=== PATIENT | male | born 1955 | race Two or more races ===

== ENCOUNTER 2017-02-04 11:30 | Emergency (ER) | payer SELFPAY ==
[~2017-02-04] VITALS: Ht 177.8 cm; Wt 71.2 kg
--- NOTE | 2017-02-04 11:32 | NUR ---
PT BIBRA FROM HOME TO ER BED 12. SISTER CALLED 911 CONCERNED ABOUT PT ACTING BIZZARE AND RESTLESS. POSSIBLE HEROIN USE. PT DENIES STATING LAST HEROIN USE WAS LAST WEEK. PLACED ON MONITOR. TACHY OTHERWISE STABLE. PT VERBALLY RESPONSIVE. AWAITING MD MITCHELL.
[2017-02-04] MEDS ORDERED: LORAZEPAM INJ 2 MG/ML VIAL ONE (12:14)
--- NOTE | 2017-02-04 12:19 | NUR ---
ATIVAN 1MG GIVEN IM PER ERMD VERBAL ORDER.
[2017-02-04] MEDS ORDERED: LORAZEPAM INJ 2 MG/ML VIAL IM ONE (12:30)
[2017-02-04 12:36] LABS: HEMATOCRIT 25 % (39-51); HEMOGLOBIN 7.7 g/dL (13.5-17.5); MEAN CORPUSCULAR HEMOGLOBIN 17 PG (26.0-33.0); MEAN CORPUSCULAR HGB CONC 31 g/dl (31.0-36.0); MEAN CORPUSCULAR VOLUME 56 fL (80-96); PLATELET COUNT (AUTO) 273 /CMM (150-450); RDW COEFFICIENT OF VARIATION 21.8 (11.5-15.0); RED BLOOD CELL COUNT(AUTO) 4.47 MIL/uL (4.5-6.0); WHITE BLOOD COUNT (AUTO) 6.2 K/uL (4.3-11.0)
[2017-02-04 12:43] LABS: CALCIUM, SERUM 8.3 mg/dL (8.5-10.1); CREATININE 1.2 mg/dL (0.6-1.3); POTASSIUM 4.4 mmol/L (3.5-5.1)
[2017-02-04 12:48] LABS: ALBUMIN 2.9 g/dL (3.4-5.0); BILIRUBIN,DIRECT 0.2 mg/dL (0.0-0.2); BILIRUBIN,TOTAL 0.4 mg/dL (0.2-1.0); TOTAL PROTEIN, SERUM 7.3 g/dL (6.4-8.2)
[2017-02-04 12:50] LABS: EOSINOPHILS # (AUTO) 0.2 /CMM (0.0-0.7); EOSINOPHILS % (AUTO) 3.5 % (0.0-6.0); LYMPHOCYTES # (AUTO) 1.1 /CMM (0.8-4.8); LYMPHOCYTES % (AUTO) 17.5 % (20.0-44.0); MONOCYTES # (AUTO) 0.6 /CMM (0.1-1.30); MONOCYTES % (AUTO) 9.7 % (2.0-12.0); NEUTROPHILS # (AUTO) 4.4 /CMM (1.8-8.9); NEUTROPHILS % (AUTO) 69.3 % (43.0-81.0)
--- NOTE | 2017-02-04 12:59 | NUR ---
PT AMBULATED TO THE BATHROOM TRYING TO PROVIDE URINE SAMPLE. STATES UNABLE TO GO. DR BRADEN MADE AWARE.
[2017-02-04] MEDS ORDERED: LORAZEPAM 1 MG TABLET ONE (13:07)
--- NOTE | 2017-02-04 13:16 | NUR ---
PT TO RADIOLOGY FOR HEAD CT SCAN VIA [facility].
[2017-02-04] MEDS ORDERED: LORAZEPAM 1 MG TABLET PO ONE (13:30)
[2017-02-04 14:22] LABS: APPEARANCE,URINE Clear (CLEAR); BILIRUBIN,URINE SMALL (NEGATIVE); BLOOD, URINE Negative Ery/uL (NEGATIVE); COLOR,URINE Yellow (YELLOW); KETONES,URINE Trace (NEGATIVE); LEUKOCYTE ESTERASE ,URINE Negative (NEGATIVE); NITRITE, URINE Negative (NEGATIVE); PH,URINE 5.5 (5.0-8.0); PROTEIN,URINE Negative (NEGATIVE); UGLUCOSE Negative (NEGATIVE); UROBILINOGEN,URINE 0.2 EU/dL (0.2)
[2017-02-04 14:24] LABS: BACTERIA,URINE Rare /HPF (None Seen); RBC,URINE NONE SEEN /HPF (0-2); SQUAMOUS EPITHELIAL CELL,UR Few /HPF (None Seen); WBC,URINE 0-2 /HPF (0-3)
[2017-02-04] MEDS ORDERED: OLANZAPINE 10 MG VIAL IM ONE ×2 (14:27→14:30)
--- NOTE | 2017-02-04 14:30 | NUR ---
DR PITTMAN IN TO SEE PT. PT IS ACTING BIZZARE. VERBALLY NON RESPONSIVE, AGITATED. ON MONITOR. MEDICATED ORDERED.
[2017-02-04 14:54] LABS: LYMPHOCYTES % (MANUAL) 21 % (16-48); MONOCYTES % (MANUAL) 10 % (0-11.0); NEUTROPHILS % (MANUAL) 69 (42-76)
--- NOTE | 2017-02-04 15:00 | NUR ---
PT GIRLFRIEND AT BEDSIDE. STATES HE SAW PT SHOOTING HEROIN THIS MORNING. PT IS SEDATED AT THIS TIME. ON MONITOR. STABLE VITALS. WILL CONTINUE TO MONITOR.
--- NOTE | 2017-02-04 16:18 | NUR ---
PERSON TO NOTIFY KITTY
--- NOTE | 2017-02-04 17:47 | NUR ---
PT SLEEPING. ON MONITOR. STABLE VITALS. WILL CONT TO MONITOR.
--- NOTE | 2017-02-04 19:21 | NUR ---
PT TRANSFERED TO OBS ROOM. GURPREET BAIN AT BEDSIDE SITTER.
--- NOTE | 2017-02-04 23:49 | NUR ---
PT RELAXING IN BED IN NO APPARENT DISTRESS, [place] BAIN AT BEDSIDE A SITTER
--- NOTE | 2017-02-05 03:13 | NUR ---
PT SLEEPING IN NO APPARENT DISTRESS, PT ON MONITOR VSS, MATHEMATICAL STATISTICIAN AT BEDSIDE SITTER WILL CONTINUE TO MONITOR.
--- NOTE | 2017-02-05 06:02 | NUR ---
PT AWAKE AND A/OX4, BREATHING EFFORTLESSLY ON ROOM AIR, PT WAITING FOR RIDE TO PICK HIM UP DACIA CHAVIS AT BEDSIDE, WILL CONTINUE TO MONITOR.
--- NOTE | 2017-02-05 07:45 | NUR ---
Patient is resting comfortably in bed with eyes closed. Easily aroused. VSS
--- NOTE | 2017-02-05 08:05 | NUR ---
The patient was seen and assessed by the Dr. Griffith at bedside - denies SUICIDAL - he is alert and oriented x 4. Also, per PET TEAM notes, see below: Patient alert and orientated in all spheres. Denies S/i H/i and symptoms of psychosis. Euthymic. Judgment insight and impulse control wnl. STM and LTM are WNL. Appetite and sleep WNL except when using drugs. Patient does nto meet 5150 criteria nor inpatient criteria. Patient cleared for discharge. He will follow up with his Methadone clinic. I have referred him to [facility] [phone] even thought he denies use abuse fo drugs. I discussed the case with Dr Penn. Suicide Risk Screen Suicide Risk Screen Voicing suicidal intent/idea: No Positive hx of suicide attempt: No Pt has active suicide plan: No Hx psy cond acute symp 30d: No SHORTY BENAVIDES, LCSWDec 2016 04:49
--- NOTE | 2017-02-05 08:08 | NUR ---
Plan: DC home with family
--- NOTE | 2017-02-05 08:10 | NUR ---
IV removed. Catheter intact and site benign. Pressure and 4x4 applied to site. No bleeding noted.
--- NOTE | 2017-02-05 08:13 | NUR ---
Patient discharged to home in stable condition. Written and verbal after care instructions given. Patient verbalizes understanding of instruction.
[2017-02-05 08:15] VITALS: BP 125/85
== END 2017-02-05 08:16 | disposition home or self-care (01) ==
LOC: ER 11:32
DX: F19.10 Other psychoactive substance abuse, uncomplicated (principal); F11.10 Opioid abuse, uncomplicated; D64.9 Anemia, unspecified; J44.9 Chronic obstructive pulmonary disease, unspecified; F17.200 Nicotine dependence, unspecified, uncomplicated; Z86.19 Personal history of other infectious and parasitic diseases
CPT/HCPCS: 36415; 70450; 80048; 80076; 80305; 81001; 82140; 85025; 96372 ×2; 99285; A4606; G0480; J2060; J3490; Z7610; 81000-TC

== ENCOUNTER 2017-10-03 20:54 | Inpatient (IN) | payer MEDICAID ==
[~2017-10-03] VITALS: Ht 185.4 cm; Wt 66.7 kg
[2017-10-03] MEDS ORDERED: LORAZEPAM INJ 2 MG/ML VIAL IVP ONE (21:30)
[2017-10-03] MEDS ORDERED: LORAZEPAM INJ 2 MG/ML VIAL ONE ×2 (21:48→22:29)
[2017-10-03] MEDS ORDERED: diphenhydrAMINE HCL 50 MG/ML VIAL ONE (22:07)
[2017-10-03] MEDS ORDERED: HALOPERIDOL LACTATE INJ 5 MG/ML VIAL ONE (22:07)
[2017-10-03] MEDS ORDERED: IV NS 0.9% 1,000 ML BAG IV ONE ×2 (22:30→23:30)
[2017-10-03] MEDS ORDERED: LORAZEPAM INJ 2 MG/ML VIAL IV ONE (22:30)
[2017-10-03] MEDS ORDERED: diphenhydrAMINE HCL 50 MG/ML VIAL IV ONE (22:30)
[2017-10-03] MEDS ORDERED: HALOPERIDOL LACTATE INJ 5 MG/ML VIAL IM ONE (22:30)
[2017-10-03 22:50] LABS: HEMATOCRIT 31 % (39-51); HEMOGLOBIN 8.9 g/dL (13.5-17.5); MEAN CORPUSCULAR HEMOGLOBIN 18 PG (26.0-33.0); MEAN CORPUSCULAR HGB CONC 29 g/dl (31.0-36.0); MEAN CORPUSCULAR VOLUME 61 fL (80-96); PLATELET COUNT (AUTO) 200 /CMM (150-450); RDW COEFFICIENT OF VARIATION 23.2 (11.5-15.0); RED BLOOD CELL COUNT(AUTO) 5.06 MIL/uL (4.5-6.0); WHITE BLOOD COUNT (AUTO) 9.2 K/uL (4.3-11.0)
[2017-10-03 23:01] LABS: CALCIUM, SERUM 8.1 mg/dL (8.5-10.1); CARBON DIOXIDE 24 mmol/L (21-32); CHLORIDE 107 mmol/L (98-107); GLUCOSE 88 mg/dL (74-106); POTASSIUM 3.2 mmol/L (3.5-5.1); SODIUM SERUM 141 mmol/L (136-145); UREA NITROGEN, BLOOD 15 mg/dL (7-18)
[2017-10-03 23:03] LABS: ALANINE AMINOTRANSFERASE 42 U/L (12-78); ALBUMIN 3.3 g/dL (3.4-5.0); ALCOHOL, BLOOD < 3 mg/dL (0-0); ALKALINE PHOSPHATASE 114 U/L (46-116); ASPARTATE AMINOTRANSFERASE 80 U/L (15-37); BILIRUBIN,DIRECT 0.2 mg/dL (0.0-0.2); BILIRUBIN,TOTAL 0.6 mg/dL (0.2-1.0); SALICYLATE 4.6 mg/dL (2.8-20.0); TOTAL PROTEIN, SERUM 7.4 g/dL (6.4-8.2)
[2017-10-03 23:04] LABS: ACETAMINOPHEN 0 ug/ml (10-30)
[2017-10-03 23:10] LABS: ABG BASE EXCESS -5.2 mmol/L; ABG OXYGEN SATURATION 90.1 % (92.0-98.5); ABG PCO2 38.4 mmHg (35.0-45.0); ABG PH 7.338 (7.350-7.450); ABG PO2 65.7 mmHg (75.0-100.0); AaDO2 117.5 mmHg; COHb 2.5 % (0.5-1.5); MetHb 0.5 % (0.0-1.5); O2Hb 87.4 % (94.0-97.0); SITE, ABG Left Radial
[2017-10-03] MEDS ORDERED: PROPOFOL 100 ML ONE (23:14)
[2017-10-03 23:18] LABS: EOSINOPHILS % (MANUAL) 1 % (0-4); LYMPHOCYTES % (MANUAL) 26 % (16-48); MONOCYTES % (MANUAL) 10 % (0-11.0); NEUTROPHILS % (MANUAL) 63 (42-76)
[2017-10-03] MEDS ORDERED: ETOMIDATE 2 MG/ML VIAL IV ONE (23:30)
[2017-10-03] MEDS ORDERED: ROCURONIUM BROMIDE 100 MG/10 ML VIAL IV ONE (23:30)
[2017-10-03] MEDS ORDERED: PROPOFOL 100 ML IV PRN (23:30)
[2017-10-03 23:41] VITALS: BP 182/91
[2017-10-04] VITALS (53 sets, daily range): BP systolic 83–143; BP diastolic 51–76
[2017-10-04] MEDS ORDERED: LIDOCAINE 2% JEL UROJET 10 ML MM ONE
[2017-10-04 00:01] LABS: APPEARANCE,URINE CLEAR (CLEAR); BILIRUBIN,URINE NEGATIVE (NEGATIVE); BLOOD, URINE TRACE-INTA Ery/uL (NEGATIVE); COLOR,URINE YELLOW (YELLOW); KETONES,URINE NEGATIVE (NEGATIVE); LEUKOCYTE ESTERASE ,URINE NEGATIVE (NEGATIVE); NITRITE, URINE NEGATIVE (NEGATIVE); PROTEIN,URINE NEGATIVE (NEGATIVE); UGLUCOSE NEGATIVE (NEGATIVE); UROBILINOGEN,URINE 0.2 EU/dL (0.2)
[2017-10-04 00:07] LABS: BACTERIA,URINE Few /HPF (None Seen); SQUAMOUS EPITHELIAL CELL,UR Rare /HPF (None Seen); WBC,URINE 0-2 /HPF (0-3)
[2017-10-04 00:36] LABS: CREATINE KINASE MB 4.5 ng/mL (0-3.6)
[2017-10-04 01:05] LABS: ABG BASE EXCESS -4.4 mmol/L; ABG OXYGEN SATURATION 95.2 % (92.0-98.5); ABG PH 7.187 (7.350-7.450); ABG PO2 101.1 mmHg (75.0-100.0); AaDO2 182.3 mmHg; MetHb 0.5 % (0.0-1.5); O2Hb 92.8 % (94.0-97.0); SITE, ABG Right Radial; VENT MODE, BG AC 16 500 50% +5
[2017-10-04 01:38] LABS: ABG BASE EXCESS -1.9 mmol/L; ABG OXYGEN SATURATION 97.9 % (92.0-98.5); ABG PO2 145.3 mmHg (75.0-100.0); AaDO2 157.2 mmHg; COHb 1.6 % (0.5-1.5); MetHb 0.3 % (0.0-1.5); SITE, ABG Right Radial; VENT MODE, BG AC 20 500 50% +5
[2017-10-04] MEDS ORDERED: PROPOFOL 100 ML ONE (02:04)
[2017-10-04] MEDS ORDERED: IV D5/0.45 NACL 1,000 ML IV PRN (03:16)
[2017-10-04] MEDS ORDERED: ACETAMINOPHEN 325 MG TABLET PO PRN (03:30)
[2017-10-04] MEDS ORDERED: ONDANSETRON HCL/PF 4 MG/2 ML VIAL IVP PRN (03:30)
[2017-10-04] MEDS ORDERED: Thiamine 100 MG/ML VIAL ONE (04:03)
[2017-10-04] MEDS: ENOXAPARIN SODIUM 40 MG/0.4 ML DISP.SYRIN SQ SCH (04:05)
[2017-10-04] MEDS: Thiamine 100 MG in IV D5W 50 ML IV SCH (04:06)
[2017-10-04] MEDS ORDERED: IV PREMIX D5 1/2NS + KCL 1,000 ML IV ONE (04:15)
[2017-10-04] MEDS ORDERED: Potassium Chloride 20 MEQ in IV D5/0.45 NACL 1,000 ML IV SCH (04:30)
[2017-10-04] MEDS: PROPOFOL 100 ML IV PRN ×8 (04:33→23:28)
[2017-10-04 05:05] LABS: HEMATOCRIT 29 % (39-51); HEMOGLOBIN 8.1 g/dL (13.5-17.5); MEAN CORPUSCULAR HEMOGLOBIN 17 PG (26.0-33.0); MEAN CORPUSCULAR HGB CONC 28 g/dl (31.0-36.0); MEAN CORPUSCULAR VOLUME 61 fL (80-96); PLATELET COUNT (AUTO) 163 /CMM (150-450); RDW COEFFICIENT OF VARIATION 22.6 (11.5-15.0); RED BLOOD CELL COUNT(AUTO) 4.69 MIL/uL (4.5-6.0); WHITE BLOOD COUNT (AUTO) 8.9 K/uL (4.3-11.0)
[2017-10-04 05:10] LABS: ALBUMIN 2.8 g/dL (3.4-5.0); CALCIUM, SERUM 7.5 mg/dL (8.5-10.1); CREATININE 0.8 mg/dL (0.6-1.3); MAGNESIUM 1.8 mg/dL (1.8-2.4); POTASSIUM 3.8 mmol/L (3.5-5.1)
[2017-10-04 05:25] LABS: BILIRUBIN,TOTAL 0.5 mg/dL (0.2-1.0); PHOSPHORUS 2.9 mg/dL (2.5-4.9); THYROID STIMULATING HORMONE 1.205 uIU/mL (0.358-3.74); TOTAL PROTEIN, SERUM 6.5 g/dL (6.4-8.2)
[2017-10-04 05:31] LABS: TROPONIN I 0.066 ng/mL (0.00-0.056)
[2017-10-04 05:36] LABS: LYMPHOCYTES % (MANUAL) 6 % (16-48); MONOCYTES % (MANUAL) 3 % (0-11.0); NEUTROPHILS % (MANUAL) 91 (42-76)
[2017-10-04] MEDS ORDERED: ROCURONIUM BROMIDE 50 MG/5 ML IV ONE (08:00)
[2017-10-04] MEDS ORDERED: ETOMIDATE 2 MG/ML VIAL IV ONE (08:00)
[2017-10-04] MEDS: Potassium Chloride 20 MEQ in IV D5/ 0.9% NACL 1,000 ML IV PRN ×2 (08:37→19:25)
[2017-10-04 10:37] LABS: ABG BASE EXCESS -1.7 mmol/L; ABG OXYGEN SATURATION 97.7 % (92.0-98.5); ABG PCO2 38.8 mmHg (35.0-45.0); ABG PH 7.392 (7.350-7.450); ABG PO2 132.1 mmHg (75.0-100.0); AaDO2 180.8 mmHg; COHb 0.5 % (0.5-1.5); MetHb 0.4 % (0.0-1.5); O2Hb 96.8 % (94.0-97.0); SITE, ABG Right Radial; VENT MODE, BG AC 20 500 50% +5
[2017-10-04] MEDS: Z GUARD REMEDY 2 OZ OINT TP PRN ×2 (11:29→18:25)
[2017-10-04] MEDS ORDERED: IV NS 0.9% 500 ML IV ONE (11:30)
[2017-10-04] MEDS: FENTANYL CITRAT IV 2,500 MCG in IV NS 0.9% 200 ML IV PRN (15:46)
[2017-10-04 18:35] LABS: OCCULT BLOOD STOOL NEGATIVE (NEGATIVE)
[2017-10-05] VITALS (55 sets, daily range): BP systolic 97–153; BP diastolic 55–90
[2017-10-05] MEDS: PROPOFOL 100 ML IV PRN ×4 (01:09→07:23)
[2017-10-05] MEDS: Potassium Chloride 20 MEQ in IV D5/ 0.9% NACL 1,000 ML IV PRN ×2 (03:16→15:21)
[2017-10-05] MEDS: Thiamine 100 MG in IV D5W 50 ML IV SCH (03:44)
[2017-10-05] MEDS: ENOXAPARIN SODIUM 40 MG/0.4 ML DISP.SYRIN SQ SCH (03:45)
[2017-10-05 04:41] LABS: HEMATOCRIT 28 % (39-51); HEMOGLOBIN 7.9 g/dL (13.5-17.5); MEAN CORPUSCULAR HEMOGLOBIN 18 PG (26.0-33.0); MEAN CORPUSCULAR HGB CONC 29 g/dl (31.0-36.0); MEAN CORPUSCULAR VOLUME 63 fL (80-96); PLATELET COUNT (AUTO) 134 /CMM (150-450); RDW COEFFICIENT OF VARIATION 24.6 (11.5-15.0); RED BLOOD CELL COUNT(AUTO) 4.41 MIL/uL (4.5-6.0); WHITE BLOOD COUNT (AUTO) 10.1 K/uL (4.3-11.0)
[2017-10-05 05:02] LABS: CALCIUM, SERUM 7.8 mg/dL (8.5-10.1); CREATININE 0.7 mg/dL (0.6-1.3); MAGNESIUM 1.9 mg/dL (1.8-2.4); PHOSPHORUS 3.2 mg/dL (2.5-4.9); POTASSIUM 4.3 mmol/L (3.5-5.1)
[2017-10-05 05:10] LABS: CREATINE KINASE MB 2.2 ng/mL (0-3.6)
[2017-10-05 05:13] LABS: BAND % (MANUAL) 2 % (0.0-5.0); EOSINOPHILS % (MANUAL) 1 % (0-4); LYMPHOCYTES % (MANUAL) 8 % (16-48); MONOCYTES % (MANUAL) 4 % (0-11.0); NEUTROPHILS % (MANUAL) 85 (42-76)
[2017-10-05] MEDS: Z GUARD REMEDY 2 OZ OINT TP PRN ×2 (07:16→12:52)
[2017-10-05 08:43] LABS: ABG BASE EXCESS -3.5 mmol/L; ABG OXYGEN SATURATION 79.6 % (92.0-98.5); ABG PCO2 37.3 mmHg (35.0-45.0); ABG PH 7.375 (7.350-7.450); ABG PO2 46.5 mmHg (75.0-100.0); AaDO2 159.7 mmHg; COHb 1.2 % (0.5-1.5); MetHb 0.6 % (0.0-1.5); O2Hb 78.2 % (94.0-97.0); SITE, ABG Left Radial
[2017-10-05] MEDS: FENTANYL CITRAT IV 2,500 MCG in IV NS 0.9% 200 ML IV PRN ×2 (09:27→22:52)
[2017-10-05 10:24] LABS: ABG BASE EXCESS -2.1 mmol/L; ABG OXYGEN SATURATION 97.3 % (92.0-98.5); ABG PCO2 40.3 mmHg (35.0-45.0); ABG PH 7.373 (7.350-7.450); ABG PO2 118.4 mmHg (75.0-100.0); AaDO2 192.8 mmHg; MetHb 0.8 % (0.0-1.5); O2Hb 95.5 % (94.0-97.0); SITE, ABG Right Radial
[2017-10-05] MEDS: MIDAZOLAM HCL 200 MG in IV NS 0.9% 60 ML IV PRN (12:11)
[2017-10-06] VITALS (37 sets, daily range): BP systolic 125–155; BP diastolic 61–88
[2017-10-06] MEDS: ENOXAPARIN SODIUM 40 MG/0.4 ML DISP.SYRIN SQ SCH (03:56)
[2017-10-06] MEDS: Thiamine 100 MG in IV D5W 50 ML IV SCH (04:06)
[2017-10-06] MEDS: Potassium Chloride 20 MEQ in IV D5/ 0.9% NACL 1,000 ML IV PRN ×2 (07:43→21:08)
[2017-10-06] MEDS: LORAZEPAM INJ 2 MG/ML VIAL IV PRN ×4 (10:03→13:32)
[2017-10-06 10:11] LABS: CALCIUM, SERUM 7.6 mg/dL (8.5-10.1); CREATININE 0.7 mg/dL (0.6-1.3); HEMATOCRIT 28 % (39-51); MEAN CORPUSCULAR HEMOGLOBIN 18 PG (26.0-33.0); MEAN CORPUSCULAR HGB CONC 28 g/dl (31.0-36.0); MEAN CORPUSCULAR VOLUME 63 fL (80-96); PLATELET COUNT (AUTO) 152 /CMM (150-450); POTASSIUM 3.9 mmol/L (3.5-5.1); RDW COEFFICIENT OF VARIATION 24.7 (11.5-15.0); RED BLOOD CELL COUNT(AUTO) 4.55 MIL/uL (4.5-6.0); WHITE BLOOD COUNT (AUTO) 12.4 K/uL (4.3-11.0)
[2017-10-06 11:50] LABS: LYMPHOCYTES % (MANUAL) 11 % (16-48); MONOCYTES % (MANUAL) 6 % (0-11.0); NEUTROPHILS % (MANUAL) 83 (42-76)
[2017-10-06] MEDS: PANTOPRAZOLE 40 MG VIAL IV SCH (13:32)
[2017-10-06] MEDS: MIDAZOLAM HCL 200 MG in IV NS 0.9% 60 ML IV PRN (14:22)
[2017-10-06] MEDS ORDERED: MIDAZOLAM HCL 200 MG in IV NS 0.9% 60 ML IV PRN (15:00)
[2017-10-06] MEDS: FENTANYL CITRAT IV 2,500 MCG in IV NS 0.9% 200 ML IV PRN (20:09)
[2017-10-07] VITALS (29 sets, daily range): BP systolic 103–150; BP diastolic 56–92
[2017-10-07] MEDS: ENOXAPARIN SODIUM 40 MG/0.4 ML DISP.SYRIN SQ SCH (03:32)
[2017-10-07] MEDS: Thiamine 100 MG in IV D5W 50 ML IV SCH (03:33)
[2017-10-07 04:42] LABS: CALCIUM, SERUM 7.9 mg/dL (8.5-10.1); CREATININE 0.7 mg/dL (0.6-1.3); POTASSIUM 3.9 mmol/L (3.5-5.1)
[2017-10-07 04:52] LABS: HEMATOCRIT 28 % (39-51); MEAN CORPUSCULAR HEMOGLOBIN 18 PG (26.0-33.0); MEAN CORPUSCULAR HGB CONC 29 g/dl (31.0-36.0); MEAN CORPUSCULAR VOLUME 61 fL (80-96); PLATELET COUNT (AUTO) 148 /CMM (150-450); RDW COEFFICIENT OF VARIATION 22.1 (11.5-15.0); RED BLOOD CELL COUNT(AUTO) 4.56 MIL/uL (4.5-6.0); WHITE BLOOD COUNT (AUTO) 8.9 K/uL (4.3-11.0)
[2017-10-07 05:05] LABS: EOSINOPHILS % (MANUAL) 3 % (0-4); LYMPHOCYTES % (MANUAL) 16 % (16-48); MONOCYTES % (MANUAL) 5 % (0-11.0); NEUTROPHILS % (MANUAL) 76 (42-76)
[2017-10-07] MEDS: FENTANYL CITRAT IV 2,500 MCG in IV NS 0.9% 200 ML IV PRN (08:42)
[2017-10-07 12:13] LABS: ABG BASE EXCESS 1.8 mmol/L; ABG PH 7.486 (7.350-7.450); ABG PO2 144.3 mmHg (75.0-100.0); AaDO2 101.8 mmHg; COHb 0.6 % (0.5-1.5); MetHb 1.4 % (0.0-1.5); SITE, ABG Right Radial; VENT MODE, BG SIMV 4 450 PS12 +5
[2017-10-07] MEDS: PANTOPRAZOLE 40 MG VIAL IV SCH (12:56)
[2017-10-07] MEDS: Potassium Chloride 20 MEQ in IV D5/ 0.9% NACL 1,000 ML IV PRN (12:56)
[2017-10-07 13:14] LABS: *HGBFR CHEMOGLOBIN SOLUBILITY Negative (Negative); *HGBFRC HEMOGLOBIN A 98.3 % (96.4-98.8); *HGBFRC HEMOGLOBIN A2 1.7 % (1.8-3.2)
[2017-10-08] VITALS (12 sets, daily range): BP systolic 98–130; BP diastolic 43–73
[2017-10-08] MEDS: ENOXAPARIN SODIUM 40 MG/0.4 ML DISP.SYRIN SQ SCH (03:53)
[2017-10-08] MEDS: Potassium Chloride 20 MEQ in IV D5/ 0.9% NACL 1,000 ML IV PRN (03:55)
[2017-10-08] MEDS: Thiamine 100 MG in IV D5W 50 ML IV SCH (03:55)
[2017-10-08 05:15] LABS: CALCIUM, SERUM 7.8 mg/dL (8.5-10.1); CREATININE 0.7 mg/dL (0.6-1.3); POTASSIUM 3.8 mmol/L (3.5-5.1)
[2017-10-08 05:49] LABS: HEMATOCRIT 26 % (39-51); HEMOGLOBIN 7.3 g/dL (13.5-17.5); MEAN CORPUSCULAR HEMOGLOBIN 17 PG (26.0-33.0); MEAN CORPUSCULAR HGB CONC 28 g/dl (31.0-36.0); MEAN CORPUSCULAR VOLUME 61 fL (80-96); PLATELET COUNT (AUTO) 154 /CMM (150-450); RDW COEFFICIENT OF VARIATION 22.4 (11.5-15.0); RED BLOOD CELL COUNT(AUTO) 4.24 MIL/uL (4.5-6.0); WHITE BLOOD COUNT (AUTO) 5.7 K/uL (4.3-11.0)
[2017-10-08 06:33] LABS: EOSINOPHILS % (MANUAL) 2 % (0-4); LYMPHOCYTES % (MANUAL) 21 % (16-48); MONOCYTES % (MANUAL) 5 % (0-11.0); NEUTROPHILS % (MANUAL) 72 (42-76)
[2017-10-08] MEDS: PANTOPRAZOLE 40 MG VIAL IV SCH (13:00)
[2017-10-09] VITALS: BP 133/70
[2017-10-09] MEDS: ENOXAPARIN SODIUM 40 MG/0.4 ML DISP.SYRIN SQ SCH (02:43)
[2017-10-09 04:00] VITALS: BP 129/68
[2017-10-09 07:36] LABS: HEMATOCRIT 27 % (39-51); HEMOGLOBIN 7.7 g/dL (13.5-17.5); MEAN CORPUSCULAR HEMOGLOBIN 18 PG (26.0-33.0); MEAN CORPUSCULAR HGB CONC 29 g/dl (31.0-36.0); MEAN CORPUSCULAR VOLUME 62 fL (80-96); PLATELET COUNT (AUTO) 191 /CMM (150-450); RDW COEFFICIENT OF VARIATION 25.4 (11.5-15.0); RED BLOOD CELL COUNT(AUTO) 4.32 MIL/uL (4.5-6.0); WHITE BLOOD COUNT (AUTO) 5.1 K/uL (4.3-11.0)
[2017-10-09 08:00] VITALS: BP 134/72
[2017-10-09] MEDS ORDERED: THIAMINE HCL 100 MG TABLET PO SCH (09:00)
[2017-10-09 10:32] LABS: EOSINOPHILS % (MANUAL) 1 % (0-4); LYMPHOCYTES % (MANUAL) 21 % (16-48); MONOCYTES % (MANUAL) 6 % (0-11.0); NEUTROPHILS % (MANUAL) 72 (42-76)
[2017-10-09] MEDS: PANTOPRAZOLE 40 MG VIAL IV SCH (13:00)
[2017-10-09 15:58] VITALS: BP 119/70
[2017-10-09] MEDS ORDERED: PNEUMOCOCCAL 23-VAL P-SAC VAC 0.5 ML VIAL SQ ONE (16:30)
== END 2017-10-09 17:30 | disposition home or self-care (01) | DRG 133 ==
LOC: ER 20:56 → ICU 10-04 02:52 → MED 10-08 08:48 → TELE 10-08 20:21 → MED 10-09 17:25
PROVIDERS: ADMIT Nurse Practitioner Acute Care; ATTEND Nurse Practitioner Acute Care
PROC: 0BH17EZ Insertion of Endotracheal Airway into Trachea, Via Natural or Artificial Opening (ICD-10-PCS; principal; 2017-10-04)
PROC: 5A1945Z Respiratory Ventilation, 24-96 Consecutive Hours (ICD-10-PCS; principal; 2017-10-04)
DX: J96.02 Acute respiratory failure with hypercapnia (principal); I21.A1 Myocardial infarction type 2; G92 Toxic encephalopathy; E44.0 Moderate protein-calorie malnutrition; J43.9 Emphysema, unspecified; M62.82 Rhabdomyolysis; F11.10 Opioid abuse, uncomplicated; D50.9 Iron deficiency anemia, unspecified; B19.20 Unspecified viral hepatitis C without hepatic coma; D56.9 Thalassemia, unspecified; F41.9 Anxiety disorder, unspecified; Z59.0 Homelessness; Z68.1 Body mass index [BMI] 19.9 or less, adult; E87.6 Hypokalemia; F17.200 Nicotine dependence, unspecified, uncomplicated
CPT/HCPCS: 31720; 36415; 36600; 70450-TC; 71045-TC; 80048-TC; 80053-TC; 80061-TC; 80076-TC; 80305; 81000-TC; 82272-TC; 82550-TC; 82553-TC; 82803-TC; 83021; 83540-TC; 83735-TC; 84100-TC; 84425; 84439-TC; 84443-TC; 84484-TC; 85025-TC; 85652-TC; 85660; 87040-TC; 87081-TC; 87086-TC; 90732; 93307-TC; 94002-TC; 94003-TC; 94760-TC; 99082-TC; A4217; A4606; C9113; G0480; J1200; J1630; J1650; J2060; J2250; J3010; J3411; J3480; J3490; J7030; J7040; J7042; J7050; J7060; Z7610